=== PATIENT | male | born 2000 | race Caucasian/White ===

== ENCOUNTER → 2021-12-12 11:22 | Outpatient (CLI) | payer OTHER, SELFPAY ==
--- NOTE | 2021-12-12 | DI.RAD.S_ITS ---
PROCEDURE: FL SHOULDER INJECTION MR/CT LT INDICATIONS: SUBLUXATION LT SHOULDER COMPARISON: None. TECHNIQUE: The indications, alternatives, benefits, risks, and complications of the procedure were explained to the patient. Written informed consent was obtained and placed in the chart. The shoulder was examined fluoroscopically and a site for needle placement chosen for entry into the glenohumeral joint from an anterior approach. The skin was prepped and draped in a sterile fashion, and 1% lidocaine infiltrated from skin down to joint capsule. A spinal needle was inserted into the glenohumeral joint, and a small amount of iodinated contrast media injected to confirm intra-articular placement of the needle tip. This was followed by approximately 12 mL dilute solution of a gadolinium containing MR contrast agent. The needle was removed and a dressing was applied. The patient was given postprocedural instructions and sent to the MR suite for MR imaging. FINDINGS: A single fluoroscopic spot image demonstrates intra-articular location of injected iodinated contrast. IMPRESSION: Successful fluoroscopically guided administration of dilute Gadolinium solution into the shoulder joint for MR arthrogram. Dictated by: Giovanny Becker M.D. on 12/12/2021 at 15:30 Approved by: Giovanny Becker M.D. on 12/12/2021 at 15:31
--- NOTE | 2021-12-12 | DI.MRI.S_ITS ---
PROCEDURE: MR SHOULDER LT W CON INDICATIONS: SUBLUXATION LT SHOULDER TECHNIQUE: After the administration of 12 mL of dilute intra-articular Gadolinium contrast, oblique coronal T1 and T2 spin echo with fat saturation, oblique sagittal T1 spin echo with and without fat saturation, oblique sagittal T2 fast spin echo with fat saturation, axial T1 spin echo with fat saturation through the shoulder. COMPARISON: None. FINDINGS: Image quality: Excellent. Rotator cuff: Mild supraspinatus tendinopathy with small articular surface (8-18) and interstitial tears. Mild infraspinatus tendinopathy without evidence of tear. No subscapularis tendinopathy or evidence of tear. No rotator cuff muscle atrophy on sagittal images. Bones and bursae: Flattening of the posterior humeral head with subchondral T2 hyperintense signal, compatible with Hill-Sachs deformity. Minimal acromioclavicular joint degeneration. The acromion demonstrates conventional anatomy, without an os acromiale. Capsule and soft tissues: Linear defect in the anterior, inferior labrum, compatible with labral tear (5-15). The long head of the biceps tendon demonstrates normal location and morphology. The rotator interval appears normal, without fibrosis. The coracohumeral ligament is of normal thickness. No intra-articular bodies. IMPRESSION: 1. Mild supraspinatus tendinopathy with small articular surface and interstitial tears. 2. Mild infraspinatus tendinopathy. 3. Mild AC joint degeneration. 4. Linear defect in the anterior, inferior labrum, compatible with labral tear. 5. Hill-Sachs deformity of the humeral head. Dictated by: Chung Landa M.D. on 12/12/2021 at 13:19 Approved by: Chung Landa M.D. on 12/12/2021 at 13:29
== END ==
PROVIDERS: Referring Provider Family Medicine; Visit Provider Family Medicine
DX: S43.002A Unspecified subluxation of left shoulder joint, initial encounter (principal); M19.012 Primary osteoarthritis, left shoulder; M75.112 Incomplete rotator cuff tear or rupture of left shoulder, not specified as traumatic
CPT/HCPCS: 23350; 73222; 77002